=== PATIENT | male | born 1960 | race Caucasian/White ===

== ENCOUNTER 2020-02-17 21:42 | Emergency (ER) | payer BC ==
[~2020-02-17] VITALS: Ht 167.6 cm; Wt 69.0 kg
[2020-02-17] MEDS ORDERED: BACITRACIN ZINC OINT UDPKT TOP ONE (22:15)
[2020-02-17] MEDS ORDERED: KETOROLAC 60MG/2ML VIAL IM ONE (22:15)
[2020-02-17] MEDS ORDERED: TETANUS, DIPHTHERIA, PERTUSSIS VAC/PF 0.5ML (>7YR OLD) IM ONE (22:15)
[2020-02-17 23:26] VITALS: BP 155/86
== END 2020-02-17 23:34 | disposition home or self-care (01) ==
LOC: ER 21:42
DX: S20.211A Contusion of right front wall of thorax, initial encounter (principal); W18.30XA Fall on same level, unspecified, initial encounter; Y93.55 Activity, bike riding; Y92.9 Unspecified place or not applicable; F17.200 Nicotine dependence, unspecified, uncomplicated
CPT/HCPCS: 71045; 90471; 90715; 96372; 99284; J1885